=== PATIENT | female | born 1970 | race African-American/Black ===

== ENCOUNTER 2022-02-27 12:50 | Emergency (ER) | payer OTHER ==
[~2022-02-27] VITALS: Ht 165.1 cm; Wt 70.5 kg
[~2022-02-27 12:50] MED LIST: CARI350T PO; FLUT1DIS; GABA-1181 PO; HTN MEDS; OXYC-158 PO
[2022-02-27 13:11] VITALS: BP 154/78
[2022-02-27] MEDS ORDERED: KETOROLAC TROMETHAMINE 30 MG/ML VIAL IM ONE (14:30)
[2022-02-27] MEDS ORDERED: ACETAMINOPHEN 500 MG TABLET PO ONE (14:30)
== END 2022-02-27 15:16 | disposition home or self-care (01) ==
LOC: EMS 12:50
DX: M54.12 Radiculopathy, cervical region (principal); I10 Essential (primary) hypertension; J44.9 Chronic obstructive pulmonary disease, unspecified; Z79.899 Other long term (current) drug therapy
CPT/HCPCS: 96372; 99283; J1885